=== PATIENT | female | born 1965 | race Two or more races ===

== ENCOUNTER 2020-12-26 17:38 | Emergency (ER) | payer OTHER ==
[~2020-12-26] VITALS: Ht 172.7 cm; Wt 99.8 kg
[2020-12-26] MEDS ORDERED: KEPPRA1000 MG (18:41)
== END 2020-12-26 22:03 | disposition home or self-care (01) ==
LOC: ER 17:38
DX: G40.802 Other epilepsy, not intractable, without status epilepticus (principal)